=== PATIENT | male | born 1955 | race Caucasian/White ===

== ENCOUNTER → 2016-07-13 | Outpatient (CLI) | payer BC, OTHER | LOC: EMI 10:45 → KOH-I 07-20 08:30 | DX: G45.9 Transient cerebral ischemic attack, unspecified (principal); R90.89 Other abnormal findings on diagnostic imaging of central nervous system | CPT/HCPCS: 70553; A9577; J7050 ==

== ENCOUNTER → 2016-07-13 | Outpatient (CLI) | payer BC | LOC: LAB 09:53 | DX: G45.9 Transient cerebral ischemic attack, unspecified (principal) | CPT/HCPCS: 36415; 82565; 84520 ==

== ENCOUNTER → 2016-08-27 | Outpatient (CLI) | payer BC | LOC: LAB 15:23 | DX: G45.9 Transient cerebral ischemic attack, unspecified (principal); I10 Essential (primary) hypertension; Z86.79 Personal history of other diseases of the circulatory system | CPT/HCPCS: 36415; 82565; 84520 ==

== ENCOUNTER → 2016-08-31 | Outpatient (CLI) | payer BC | LOC: CT 13:40 | DX: G47.9 Sleep disorder, unspecified (principal) | CPT/HCPCS: 70496; 70498; J7050; Q9963 ==

== ENCOUNTER → 2021-07-04 | Outpatient (CLI) | payer BLACK LUNG, MEDICARE ==
[~2021-07-04] MED LIST: ALBUTEROL2.5 MG/3 M INH; AMLODIPINE BESY10 MG PO; ELIQUIS2.5 MG PO; FERROUS SULFAT325 MG PO; FLOMAX0.4 MG PO; HYDROCODON-ACE1 EAC6 PO; LISINOPRIL40 MG PO; LOSARTAN POTASS50 MG PO; MELOXICAM15 MG PO; NORCO 7.5-3251 EACH PO; PERCOCET 5/325 T1 EA PO; SYMBICORT 16010.2 GM INH; TAMSULOSIN HCL0.4 MG PO; TORADOL 10 MG T10 MG PO; VENTOLIN INH INH; [UNRECOGNIZED DRUG - OTHER] PO
== END ==
LOC: KOH-I 15:00
DX: J60 Coalworker's pneumoconiosis (principal); R91.1 Solitary pulmonary nodule
CPT/HCPCS: 71250

== ENCOUNTER → 2021-08-01 | Outpatient (CLI) | payer MEDICARE, OTHER | LOC: CT 14:15 | DX: R93.89 Abnormal findings on diagnostic imaging of other specified body structures (principal); R91.8 Other nonspecific abnormal finding of lung field | CPT/HCPCS: 71260; Q9967 ==